=== PATIENT | female | born 1995 | race African-American/Black ===

== ENCOUNTER 2017-07-05 15:51 | Emergency (ER) | END 2017-07-05 18:35 | disposition left against medical advice (07) ==

== ENCOUNTER 2018-03-20 14:59 | Outpatient (CLI) | END 2018-03-20 17:02 | disposition home or self-care (01) ==

== ENCOUNTER 2018-04-04 13:01 | Outpatient (CLI) | payer OTHER ==
[~2018-04-04] VITALS: Ht 162.6 cm; Wt 88.6 kg
[2018-04-04 13:18] VITALS: BP 118/67; PULSE 86; RESP 18
[2018-04-04 13:19] VITALS: Ht 162.6 cm; Wt 88.6 kg
--- NOTE | 2018-04-04 17:07 | TRIAGE ---
OB Triage Datetime Report Generated by CPN: 04/04/2018 17:07 Datetime: 04/04/2018 14:05 Labor Evaluation Frequency: 0 Pattern: Normal: <= 5 Contractions in 10 Minutes Resting Tone [place]: Relaxed Heart Rate FHR Baseline Rate: 130 Monitor Mode: External US Variability: Moderate 6-25 bpm Accelerations: 15X15 Decelerations: None Category: Category I Datetime: 04/04/2018 13:11 Stage of : OB Triage Time of Arrival: 04/04/2018 12:56 EGA: 32.2 Arrived By: Ambulatory Arrived From: Office Chief Complaint: UC's Movement: Present Contractions: Irregular Time Contractions Began: 04/04/2018 10:00 Rupture of Membranes: Denies Vaginal Bleeding: None Vaginal Discharge: Denies Recent Sexual Intercouse: Yes Abdominal Trauma: Not Applicable Patient Complaints: Contractions Time Provider Notified: 04/04/2018 14:16 Provider Notified: dr funes Initial Plan: NST Datetime: 04/04/2018 13:09 Assessment Type: Triage Maternal Assessment Level of Consciousness: Fully Conscious DTR's/Clonus: DTRs 2+; No Clonus Headache: Denies Blurred Vision: No Respiratory Effort: Unlabored; Regular Rhythm; Equal Expansion Breath Sounds, Left: Clear and Equal Breath Sounds, Right: Clear and Equal Nausea/Vomiting: Denies RUQ Epigastric Pain: Denies Lower Extremities Edema: None Upper Extremities Edema: None Facial Edema: None Temperature Route: Oral Fall Risk Assessment History of Falling: (0) No Secondary Diagnosis: (0) No Ambulatory Aid: (0) Bedrest/Nurse Assist IV Therapy: (0) No Gait: (0) Normal/Bedrest/Immobile Mental Status: (0) Oriented to Own Ability Fall Score: 0 Fall Risk Score Definition: No Risk: No action required Pain Assessment Pain Scale: 6 Pain Presence: Intermittent Pain Type: Contraction Pain Location: Back Datetime: 03/20/2018 16:00 Stage of : OB Triage Maternal Assessment Level of Consciousness: Fully Conscious Labor Evaluation Frequency: 0 Monitor Mode: External Resting Tone [place]: Relaxed Heart Rate FHR Baseline Rate: 135 Monitor Mode: External US Variability: Moderate 6-25 bpm Accelerations: 10X10 Decelerations: None Category: Category I Pain Assessment Pain Scale: 8 Pain Presence: Constant Pain Type: Ache Pain Location: Perineum Pain Goal: 3 Pain Relief Measures: Comfort Measures Vaginal Exam Membrane Status: Intact Vaginal Bleeding: None Datetime: 03/20/2018 15:19 EGA: 30.1 Fall Score: 0 Fall Risk Score Definition: No Risk: No action required
--- NOTE | 2018-04-04 17:21 | PN ---
Triage Information Date/Time April 04, 2018 Reason for visit: Weeks of Gestation 32 weeks and 2 days /Para 5 para 2 Diabetes: none Hypertention: none Additional information 22-year-old 5 para 2 with IUP at 32 weeks and [address] Shawanda Lomas presents with complaint of uterine contractions. She denies any leaking of fluid, vaginal bleeding decreased movement. Objective Vital Signs Date Temp Pulse Resp B/P (MAP) Pulse Ox O2 O2 Flow FiO2 Time Delivery Rate 04/04/18 97.7 86 18 118/67 Room Air 13:18 (84) Heart Rate: 130's Heart Rate Comments Category 1 and appropriate for gestational age No contraction noted on the monitor Results/Medications Result Diagram: 04/04/18 1441 Results 24 hrs Laboratory Tests Test 04/04/18 14:35 04/04/18 14:41 Urine Color STRAW Urine Clarity CLEAR Urine pH 7.0 Urine Specific [place] 1.006 Urine Ketones NEGATIVE Urine Nitrite NEGATIVE Urine Bilirubin NEGATIVE Urine Urobilinogen NEGATIVE Urine Leukocyte Esterase NEGATIVE Urine Hemoglobin NEGATIVE Urine Glucose NEGATIVE Urine Total Protein NEGATIVE White Blood Count 4.8 # Red Blood Count 3.60 L Hemoglobin 10.6 L Hematocrit 32.1 L Mean Corpuscular Volume 89.2 Mean Corpuscular Hemoglobin 29.4 Mean Corpuscular Hemoglobin Concent 33.0 Red Cell Distribution Width 13.1 Platelet Count 150 Mean Platelet Volume 11.6 H Immature Granulocytes % 0.400 Neutrophils % 67.3 Lymphocytes % 20.5 Monocytes % 10.1 Eosinophils % 1.5 Basophils % 0.2 Nucleated Red Blood Cells % 0.0 Immature Granulocytes # 0.020 Neutrophils # 3.2 Lymphocytes # 1.0 Monocytes # 0.5 Eosinophils # 0.1 Basophils # 0.0 Nucleated Red Blood Cells # 0.0 Imaging Results PROCEDURE: OB ultrasound for biophysical profile CLINICAL INDICATION: Poor tone. TECHNIQUE: Multiple sonographic images of the pelvis were obtained. Transabdominal views of the gravid uterus are available for review. The images were reviewed on a PACS workstation. COMPARISON: None FINDINGS: breathing movement = 2/2 tone = 2/2 motion = 2/2 ETHAN = 2/2 ETHAN = 14.9 cm Single live intrauterine with cardiac activity of 134 bpm. position is cephalic. The placenta is posterior. The cervix is closed with a length of 3.3 cm. IMPRESSION: 1. Single live intrauterine gestation. 2. Biophysical profile = 8/8. 3. ETHAN = 14.9 cm. RPTAT: HH PROCEDURE: US OB. CLINICAL INDICATION: labor TECHNIQUE: Multiple sonographic images of the pelvis and gravid uterus were obtained. The images were reviewed on a PACS workstation. COMPARISON: No prior studies are available for comparison. FINDINGS: Gestation: Single intrauterine gestation. Cardiac activity: 132 bpm. Presentation: Vertex. Placenta: Location: Posterior Appearance: No previa or abruption. Measurements: BPD = 7.84 cm, 31 weeks 3 days HC = 29.11 cm, 32 weeks 1 day AC = 27.14 cm, 31 weeks 2 days FL = 5.97 cm, 31 weeks 1 day Gestational age: AUA estimated gestational age: 31 weeks 4 days LMP estimated gestational age: 32 weeks 2 days AUA estimated date of delivery: 06/02/2018 EFW = 1737 g, 14 %ile based on LMP age. IMPRESSION: 1. Single live intrauterine gestation of 31 weeks 4 days by ultrasound criteria. 2. Estimated date of delivery of 06/02/2018. Disposition: Discharge Assessment/Plan IUP at 32 weeks and 2 days No evidence of labor, PPROM testing reassuring Patient will be discharged home labor precautions kick count and follow-up with primary OB within 48 hours after discharge from the hospital discussed with the patient Patient verbalized understanding importance of compliance with visits discussed with patient. All questions were answered to the patient's best satisfaction. VIRGINIA DELEON MD Apr 04, 2018 17:21
== END 2018-04-04 17:08 | disposition home or self-care (01) ==
LOC: OBT 13:01 → L-D 13:02 → OBT 17:08
PROVIDERS: ATTEND Obstetrics & Gynecology
DX: O62.9 Abnormality of forces of labor, unspecified (principal); Z3A.32 32 weeks gestation of pregnancy
CPT/HCPCS: 76815; 76817; 76818; 81003; 85025; Z7500; G0463